=== PATIENT | male | born 1990 | race Caucasian/White ===

== ENCOUNTER 2024-01-12 04:26 | Emergency (ER) | payer OTHER ==
[~2024-01-12] VITALS: Ht 180.3 cm; Wt 81.8 kg
[2024-01-12 05:12] LABS: BASOPHILS % (AUTO) 0.1 % (0-1); EOSINOPHILS % (AUTO) 0.1 % (0-6); HEMATOCRIT 55.7 % (42.0-52.0); LYMPHOCYTES # (AUTO) 0.2 X10'3 (1.1-4.8); LYMPHOCYTES % (AUTO) 2.1 % (21-51); MEAN CORPUSCULAR HEMOGLOBIN 29.5 PG (27.0-31.0); MEAN CORPUSCULAR HGB CONC 34.6 g/dL (33.0-36.5); MEAN CORPUSCULAR VOLUME 85.2 FL (78-98); MEAN PLATELET VOLUME 7.6 FL (7.4-10.4); MONOCYTES # (AUTO) 0.5 X10'3 (0-0.9); MONOCYTES % (AUTO) 4.4 % (2-12); NEUTROPHILS # (AUTO) 9.6 X10'3 (1.8-7.7); NEUTROPHILS % (AUTO) 93.3 % (42-75); PLATELET COUNT 230 X10'3 (140-440); RED BLOOD COUNT 6.54 X10'6 (4.70-6.10); RED CELL DISTRIBUTION WIDTH 13.1 % (11.5-14.5); WHITE BLOOD COUNT 10.2 X10'3 (4.5-11.0)
[2024-01-12 05:17] LABS: HEMOGLOBIN 19.3 g/dl (14.0-17.9)
[2024-01-12 05:19] LABS: ALANINE AMINOTRANSFERASE 63 U/L (12-78); ALBUMIN 3.9 G/DL (3.4-5.0); ALBUMIN/GLOBULIN RATIO 1.1 (1.1-1.5); ALKALINE PHOSPHATASE 66 IU/L (46-116); ANION GAP 12 (8-16); ASPARTATE AMINO TRANSFERASE 21 U/L (10-37); BILIRUBIN,TOTAL 0.8 MG/DL (0.1-1.0); BLOOD UREA NITROGEN 20 MG/DL (7-18); BUN/CREATININE RATIO 18.2 (10.0-20.0); CHLORIDE 103 MMOL/L (99-107); GLUCOSE 139 MG/DL (70-104); POTASSIUM 3.9 MMOL/L (3.5-5.1); SODIUM 137 MMOL/L (135-145); TOTAL CARBON DIOXIDE 22.4 MMOL/L (24-32); TOTAL PROTEIN 7.4 G/DL (6.4-8.2); eCRCL 104 ML/MIN; eGFR 78 ML/MIN
[2024-01-12 05:28] LABS: LIPASE 20 U/L (16-77)
[2024-01-12 05:36] LABS: PRO BRAIN NATRIURETIC PEPTIDE < 30 PG/ML (0-125)
[2024-01-12] MEDS: normal saline 1000ml 1,000 ML IV ONE (05:37)
[2024-01-12 06:12] VITALS: TEMP 97.7
[2024-01-12] MEDS ORDERED: ONDA-243 PO (07:14)
[2024-01-12] MEDS ORDERED: DICY10CA88 PO (07:14)
[2024-01-12] MEDS: normal saline 1000ML IV soln IVB ONE ×2 (07:31→08:49)
[2024-01-12] MEDS: ondansetron/PF 4mg/2ml inj IV ONE (07:31)
[2024-01-12] MEDS: morphine 2 MG/ML inj. syringe IV PRN (07:32)
[2024-01-12] MEDS: LORazepam 2 mg/ml vial IV ONE (09:18)
[2024-01-12 09:20] LABS: BILIRUBIN,URINE NEGATIVE (Neg); CLARITY,URINE CLEAR (Clear); COLOR,URINE YELLOW (Yellow); GLUCOSE, URINE NEGATIVE (Neg); KETONES,URINE TRACE mg/dl (Neg); LEUKOCYTE ESTERASE ,URINE NEGATIVE (Neg); NITRITES, URINE NEGATIVE (Neg); OCCULT BLOOD,URINE NEGATIVE (Neg); PROTEIN,URINE NEGATIVE (Neg); UROBILINOGEN,URINE 0.2 E.U/dL (0.2-1.0)
[2024-01-12 09:22] LABS: UA COLLECTION TYPE CLN CATCH MIDSTREAM
[2024-01-12 09:32] VITALS: BP 111/58; PULSE 110; RESP 18; O2SAT 100
== END 2024-01-12 09:33 | disposition home or self-care (01) ==
LOC: ER 04:27
DX: B34.9 Viral infection, unspecified (principal); E86.0 Dehydration; R11.10 Vomiting, unspecified; Z90.49 Acquired absence of other specified parts of digestive tract; Z79.899 Other long term (current) drug therapy
CPT/HCPCS: 36415; 71045; 80053; 81003; 82948; 83690; 83880; 84484; 85025; 93005; 96361; 96374; 96375; 99285; J2060; J2270; J2405; J7030